=== PATIENT | female | born 1995 | race Caucasian/White ===

== ENCOUNTER 2018-02-04 23:00 | Emergency (ER) | payer OTHER, MEDICAID ==
[~2018-02-04] VITALS: Ht 167.6 cm; Wt 72.6 kg
[2018-02-04] MEDS ORDERED: PYRIDIUM200 M2 (23:16)
[2018-02-04] MEDS ORDERED: CIPRO500 MG (23:16)
[2018-02-04] MEDS ORDERED: ZPAK (23:17)
[2018-02-04 23:56] LABS: ABSOLUTE BASOPHILS 0.1 thou/uL (0.0-0.2); ABSOLUTE EOSINOPHILS 0.2 thou/uL (0.0-0.7); ABSOLUTE LYMPHOCYTES 1.2 thou/uL (0.8-5.3); ABSOLUTE MONOCYTES 0.6 thou/uL (0.0-1.2); ABSOLUTE NEUTROPHILS 9.6 thou/uL (1.6-8.1); BASOPHILS 0.5 %; EOSINOPHILS 1.6 %; HEMATOCRIT 44.1 % (37.0-47.0); HEMOGLOBIN 14.2 gm/dL (12.0-15.0); LYMPHOCYTES 10.1 %; MCH 28.2 pg (26.0-34.0); MCHC 32.3 g/dL (28.0-37.0); MCV 87.4 fL (80.0-100.0); MPV 10.3 fl. (7.2-11.1); NUCLEATED RBCS 0 /100WBC; PLATELET COUNT* 231 thou/uL (150-400); POLYS 82.8 %; RBC 5.04 mil/uL (4.20-5.00); RDW-CV 13.7 % (10.5-14.5); WBC 11.6 thou/uL (4.0-11.0)
[2018-02-05 00:02] LABS: CALCIUM 8.6 mg/dL (8.5-10.1); CREATININE 1.2 mg/dL (0.6-1.3); POTASSIUM 3.8 mmol/L (3.5-5.1)
[2018-02-05 00:06] LABS: ALBUMIN 3.9 g/dL (3.4-5.0); TOTAL BILIRUBIN 0.2 mg/dL (<0.1-1.0); TOTAL PROTEIN 8.3 g/dL (6.4-8.2)
[2018-02-05 00:14] LABS: URINE BLOOD 3+ (Negative); URINE CLARITY CLEAR
[2018-02-05 00:20] LABS: AMP/METHAMP Negative (Negative); BARBITURATES Negative (Negative); BENZODIAZEPINES Negative (Negative); COCAINE POSITIVE (Negative); METHADONE Negative (Negative); OPIATES Negative (Negative); PCP Negative (Negative); THC POSITIVE (Negative)
[2018-02-05 00:35] LABS: URINE SPECIFIC GRAVITY 1.018 (1.005-1.030)
[2018-02-05 00:38] LABS: ACETEST (KETONE CONFIRMATORY) Negative (Negative); SSA (PROTEIN CONFIRMATORY) NEGATIVE (Negative); URINE REDUCING SUBSTANCE 0 % (Negative)
[2018-02-05 00:39] LABS: ICTOTEST (BILI CONFIRMATORY) Negative (Negative)
[2018-02-05 00:40] LABS: SQUAMOUS 4-10 Moderate /LPF (0-3)
[2018-02-05 00:41] LABS: URINE COLOR ORANGE; URINE RBC 3-10 Few /HPF (0-2); URINE WBC 6-15 Few /HPF (0-5)
[2018-02-05 00:42] LABS: CASTS None Seen /LPF (None Seen); CRYSTALS None Seen /LPF (None Seen)
[2018-02-05] MEDS ORDERED: NABUMETONE 750750 M1 PO (01:08)
[2018-02-05] MEDS ORDERED: ZOFRAN ODT4 MG PO (01:08)
[2018-02-05] MEDS ORDERED: PROMS25 WY RECTAL (01:19)
[2018-02-05 01:31] VITALS: BP 115/70
== END 2018-02-05 01:32 | disposition home or self-care (01) ==
LOC: M.ERS 23:00
PROVIDERS: Nurse Practitioner Family
DX: N39.0 Urinary tract infection, site not specified (principal); J01.10 Acute frontal sinusitis, unspecified; F32.9 Major depressive disorder, single episode, unspecified; F17.210 Nicotine dependence, cigarettes, uncomplicated; Z79.899 Other long term (current) drug therapy